=== PATIENT | male | born 1955 | race Caucasian/White ===

== ENCOUNTER 2023-04-30 17:18 | Inpatient (IN) ==
[2023-04-30] MEDS ORDERED: CEFEPIME 2,000 MG/20 ML VIAL IV STA (18:01)
[2023-04-30] MEDS ORDERED: DOXYCYCLINE HYCLATE 100 MG in DEXTROSE 5% 100 ML IV STA (18:01)
[2023-04-30] MEDS ORDERED: SODIUM CHLORIDE 0.9% 1000ML 1,000 ML IV SCH ×2 (18:15→23:53)
--- NOTE | 2023-04-30 18:30 | Emergency Department Note ---
Impression & Plan Hypotension, Fever, Thrombocytopenia, Elevated liver enzymes ED Provider Note NAME: ZENON TRAN AGE: 67 SEX: M : 1955 ARRIVES VIA: Walk-In INFORMANT: [Patient] ED PROVIDER(S): [Carter Wagner MD] CHIEF COMPLAINT: Fever HISTORY OF PRESENT ILLNESS: The patient is a 67-year-old male who has had about 3 days of a fever. Today's temperature was 104.7. He used some Tylenol before arrival and his fever has broke. He has been using Tylenol for the fever for the last 3 days. Patient has low energy and feels tired and weak and off balance. He has had some chills. He is concerned about a tickborne illness as there are ticks all around his house. He has not had cough or congestion or shortness of breath. No urinary complaints, no vomiting diarrhea, no rash. Yesterday, he saw his doctors office. He was prescribed doxycycline for the possibility of a tickborne disease. His COVID, flu and RSV test were negative. PMHx/PSHx: See Below SOCIAL HISTORY: See Below. PHYSICAL EXAM: GENERAL: Patient is in no acute distress. HEENT: No acute trauma, normocephalic atraumatic, mucous membranes moist, no nasal congestion. NECK: No stridor, no adenopathy, no meningismus, trachea is midline. LUNGS: Clear to auscultation bilaterally, no wheeze, no rhonchi, breath sounds equal. HEART: Without murmurs gallops or rubs, regular rate and rhythm. ABDOMEN: Soft, nontender, bowel sounds positive, no peritonitis. EXTREMITIES: No cyanosis or edema, full range of motion of all the joints without pain or difficulty, no signs for acute trauma. NEUROLOGIC: Oriented x 3, no acute motor or sensory deficits, no focal weakness. SKIN: No rash, no jaundice, no diaphoresis. DIFFERENTIAL DIAGNOSIS: Anaplasmosis, Lyme disease, bacteremia or sepsis, pneumonia, viral illness, UTI, dehydration, electrolyte imbalance, among others. EMERGENCY DEPARTMENT COURSE/PROCEDURES: Prior/Outside records reviewed: Recent family practice note. ECG per my interpretation: Indication was possible sepsis. The ECG shows a normal sinus rhythm with a right bundle branch block. The rate is 68. There is no ST elevation, no PVCs. The QTc is 463. Compared to an ECG from 15 November 2021, the right bundle branch block is now present. Continuous Cardiac Monitoring per my interpretation: An order was placed for continuous cardiac monitoring. The monitor shows a rate of 85 with normal sinus rhythm. Critical Care Note: I have personally spent 45 minutes of critical care time in the direct management of this patient. This includes bedside care, interpretation of diagnostic studies, and testing, discussion with consultants, patient, and family members, and other required patient management activities. This 45 minutes is in excess of all separately billable procedures. MEDICAL DECISION MAKING: There is no leukocytosis. Patient was anemic with a hemoglobin of 10.7. The patient carries a history of a mild anemia but his value today was lower than his baseline. Platelet count was quite low at 44. No renal failure or significant electrolyte abnormality. Lactic acid level was not elevated making severe sepsis less likely. No concerning liver enzyme elevation. Procalcitonin level was slightly elevated consistent with potential bacterial infection. Urinalysis did not show infection. Tickborne smear was negative for anaplasmo sis and babesiosis. Send out anaplasmosis and Babesia testing is pending. COVID test returned negative. Chest film per my review did not show mediastinal widening, pneumonia or pneumothorax. On exam, the patient was borderline hypotensive, he was not toxic. Patient received 2 L of IV saline. He received IV doxycycline and IV cefepime. Patient's presentation and findings suggest anaplasmosis as the cause for his fever and complaints. Patient is failing outpatient treatment. He presents borderline hypotensive. I do think a hospital stay is warranted. I spoke with the patient and case management, the on-call hospitalist was consulted. Of note, the patient's blood pressure has improved with IV saline hydration. He is resting comfortably. DISPOSITION: Patient's presentation and findings warrant a hospital stay. Past Med/Surg History Medical History Adenomatous polyp of colon Adenomyomatosis of gallbladder Cholelithiasis Dyslipidemia NO MEDS Gallstones and inflammation of gallbladder without obstruction Hypothyroidism Nocturia Sciatica Syncope per [facility] 07/10/2020 note: "likely related to dehydration, hot weather, activity and a febrile illness." Surgical History H/O oral surgery History of colonoscopy Hx laparoscopic cholecystectomy (11/21/21) Family History Father Prostate cancer Brother Hypertension Dyslipidemia Mother Dyslipidemia Denies family history of Ovarian cancer Bipolar disorder Myocardial infarction Breast cancer Lung cancer Colorectal cancer Stroke Social History Smoking Status: Never smoker Second Hand Exposure: No; Do You Dip or Chew Tobacco: No; Hx Alcohol Use: No Hx Substance Use: No Preferred Language: Tamazight Communication Ability: Effective Visual Impairment: Limited Hearing Ability: Normal Senior Technical Analyst Required: No Beliefs That Will Affect Care: None marital status: Current Living Situation: Spouse current occupational status: employed current occupation: [employer] Professor How many Children do You have: 2 Other Information That Helps Us Care for You: No Feels Safe at Home: Yes Childhood Exposure to Second-Hand Smoke: No caffeine: Yes Dental Care, Regularly: Yes Physical Activity Frequency: 3-4 Times per Week Seatbelt Use: always Sunscreen Use: Yes Assistive Devices: None Allergies Allergies Allergy/AdvReac Type Severity Reaction Status Date / Time No Known Allergies Allergy Verified 04/29/23 16:29 Home Meds Home Medications Medication Instructions Recorded Confirmed acetaminophen 500 mg tablet 1,000 mg PO Q6H PRN Fever 04/30/23 04/30/23 (Tylenol Extra Strength) Previous Rx's Medication Instructions Recorded levothyroxine 88 mcg tablet 88 mcg PO QAM #90 tabs 09/15/22 doxycycline hyclate 100 mg tablet 100 mg PO BID 7 days #14 tabs 04/30/23 Results & Data (ED) Vital Signs Vital Signs - 24 hr 04/30/23 17:23 04/30/23 18:41 04/30/23 19:01 Temperature 37.4 C 37.5 C Temperature Source Oral Oral Pulse Rate 85 63 Pulse Rate [Right Brachial] 60 Pulse Rhythm Pulse Rhythm [Right Brachial] Regular Pulse Strength [Right Brachial] Normal Respiratory Rate 18 18 Respiratory Effort / Characteristics Non-Labored Non-Labored Spontaneous Respiratory Depth Normal Normal Respiratory Pattern Regular Regular Blood Pressure 92/57 L Blood Pressure [Right Arm] 117/61 Blood Pressure Mean 68 Blood Pressure Mean [Right Arm] 79 Blood Pressure Position [Right Arm] Pulse Oximetry 95 95 Oxygen Delivery Method Room Air Room Air Sepsis Recent Fever Within 48 Hours Yes Sepsis New/Unexplained Change in Mental Status N/A Sepsis Action Taken by Nursing No Action Required 04/30/23 19:03 04/30/23 19:04 04/30/23 19:43 Temperature 37.5 C 37.3 C Temperature Source Oral Oral Pulse Rate 60 Pulse Rate [Right Brachial] 68 59 L Pulse Rhythm Regular Pulse Rhythm [Right Brachial] Regular Regular Pulse Strength [Right Brachial] Normal Normal Respiratory Rate 18 18 18 Respiratory Effort / Characteristics Non-Labored Spontaneous Non-Labored Spontaneous Respiratory Depth Normal Normal Respiratory Pattern Regular Regular Blood Pressure Blood Pressure [Right Arm] 117/61 119/67 Blood Pressure Mean Blood Pressure Mean [Right Arm] 79 84 Blood Pressure Position [Right Arm] Lying Lying Pulse Oximetry 96 96 96 Oxygen Delivery Method Room Air Room Air Room Air Sepsis Recent Fever Within 48 Hours Sepsis New/Unexplained Change in Mental Status Sepsis Action Taken by [facility] Medications Current Medication List: was personally reviewed by me Laboratory Data Attestation: I reviewed the patient's lab results. 04/30/23 18:33 04/30/23 18:33 Lab Results 04/30/23 04/30/23 04/30/23 Range/Units 18:33 18:33 18:33 WBC 6.34 (4.8-10.8) K/ul RBC 3.45 L (4.70-6.10) M/uL Hgb 10.7 L (14.0-18.0) g/dl Hct 31.5 L (42.0-52.0) % MCV 91.3 (80.0-100.0) fL MCH 31.0 (25.0-34.0) pg MCHC 34.0 (32.0-36.0) g/dL RDW Std Deviation 47.0 H (36.4-46.3) fL RDW Coeff of [place] 14.0 (11.5-14.5) % Plt Count 44 L (130-400) K/uL MPV 11.9 (9.4-12.4) fL Immature Gran % (Auto) 0.8 % Neut % (Auto) 45.1 % Lymph % (Auto) 27.8 % [place] % (Auto) 25.9 % Eos % (Auto) 0.2 % Baso % (Auto) 0.2 % Neut # (Auto) 2.87 (1.40-6.50) K/uL Lymph # (Auto) 1.76 (1.2-3.4) K/uL [place] # (Auto) 1.64 H (0.11-0.59) K/uL Eos # (Auto) 0.01 (0-0.50) K/uL Baso # (Auto) 0.01 (0-0.2) K/uL Immature Gran # (Auto) 0.05 (0.01-0.20) K/uL Sodium 134 L (136-145) mmol/L Potassium 4.1 (3.5-5.1) mmol/L Chloride 100 (98-107) mmol/L Carbon Dioxide 26 (21-32) mmol/L Anion Gap 8 (3-11) BUN 18 (6-23) mg/dl Creatinine 1.00 (0.6-1.4) mg/dl Est Cr Clr Drug Dosing 79.9 ml/min Est GFR ( Amer) 89.2 ml/min Est GFR (Non-Af Amer) 77.0 ml/min BUN/Creatinine Ratio 18.0 (10-20) Glucose 109 H (70-99(Fasting)) mg/dl Lactate 0.8 (0.4-2.0) mmol/L Calcium 8.4 L (8.6-10.3) mg/dl Magnesium 1.9 (1.7-2.4) mg/dl Total Bilirubin 0.7 (0.2-1.0) mg/dl Direct Bilirubin 0.2 (0-0.2) mg/dl AST 31 (13-39) U/L ALT 27 (7-52) U/L Alkaline Phosphatase 51 (34-104) U/L Troponin I High Sens 6.2 (0-20) pg/ml Total Protein 6.6 (6.0-8.3) gm/dl Albumin 3.7 (3.4-5.0) gm/dl Procalcitonin (0-0.5) ng/ml Urine Color Urine Appearance (Clear) Urine pH (4.5-7.5) Ur Specific [place] (1.000-1.030) Urine Protein (Negative) Urine Glucose (UA) (Negative) Urine Ketones (Negative) Urine Blood (Negative) Urine Nitrite (Negative) Urine Bilirubin (Negative) Urine Urobilinogen (Negative) Ur Leukocyte Esterase (Negative) Urine WBC (Auto) (0-5) /hpf Urine RBC (Auto) (0-4) /hpf U Hyaline Cast (Auto) (0-5) /lpf U Epithel Cells (Auto) (0-5) /lpf Urine Bacteria (Auto) (Negative) Anaplasma Smear See Comment Babesia Smear See Comment 04/30/23 04/30/23 04/30/23 Range/Units 18:33 18:33 19:00 WBC (4.8-10.8) K/ul RBC (4.70-6.10) M/uL Hgb (14.0-18.0) g/dl Hct (42.0-52.0) % MCV (80.0-100.0) fL MCH (25.0-34.0) pg MCHC (32.0-36.0) g/dL RDW Std Deviation (36.4-46.3) fL RDW Coeff of [place] (11.5-14.5) % Plt Count (130-400) K/uL MPV (9.4-12.4) fL Immature Gran % (Auto) % Neut % (Auto) % Lymph % (Auto) % [place] % (Auto) % Eos % (Auto) % Baso % (Auto) % Neut # (Auto) (1.40-6.50) K/uL Lymph # (Auto) (1.2-3.4) K/uL [place] # (Auto) (0.11-0.59) K/uL Eos # (Auto) (0-0.50) K/uL Baso # (Auto) (0-0.2) K/uL Immature Gran # (Auto) (0.01-0.20) K/uL Sodium (136-145) mmol/L Potassium (3.5-5.1) mmol/L Chloride (98-107) mmol/L Carbon Dioxide (21-32) mmol/L Anion Gap (3-11) BUN (6-23) mg/dl Creatinine (0.6-1.4) mg/dl Est Cr Clr Drug Dosing ml/min Est GFR ( Amer) ml/min Est GFR (Non-Af Amer) ml/min BUN/Creatinine Ratio (10-20) Glucose (70-99(Fasting)) mg/dl Lactate (0.4-2.0) mmol/L Calcium (8.6-10.3) mg/dl Magnesium (1.7-2.4) mg/dl Total Bilirubin (0.2-1.0) mg/dl Direct Bilirubin (0-0.2) mg/dl AST (13-39) U/L ALT (7-52) U/L Alkaline Phosphatase (34-104) U/L Troponin I High Sens (0-20) pg/ml Total Protein (6.0-8.3) gm/dl Albumin (3.4-5.0) gm/dl Procalcitonin 0.54 H (0-0.5) ng/ml Urine Color Dark Yellow Urine Appearance Clear (Clear) Urine pH 8.0 H (4.5-7.5) Ur Specific [place] 1.020 (1.000-1.030) Urine Protein 2+ H (Negative) Urine Glucose (UA) Negative (Negative) Urine Ketones Negative (Negative) Urine Blood Negative (Negative) Urine Nitrite Negative (Negative) Urine Bilirubin Negative (Negative) Urine Urobilinogen Negative (Negative) Ur Leukocyte Esterase Negative (Negative) Urine WBC (Auto) 1-5 (0-5) /hpf Urine RBC (Auto) 0-4 (0-4) /hpf U Hyaline Cast (Auto) 0 (0-5) /lpf U Epithel Cells (Auto) 5-10 H (0-5) /lpf Urine Bacteria (Auto) Negative (Negative) Anaplasma Smear Cancelled Babesia Smear Cancelled Administered Medications Sodium Chloride (Nss 1000ml) 1,000 mls @ 100 mls/hr IV .Q10H [facility] Stop: 05/01/23 09:52 Last Admin: 05/01/23 00:14 Dose: 100 mls/hr Documented By: BJD Discontinued Medications Cefepime HCl (Maxipime) 2,000 mg in 20 mls @ 5 mls/min IV NOW STA; Protocol Stop: 04/30/23 18:04 Last Admin: 04/30/23 18:32 Dose: 5 mls/min Documented By: XENIA Doxycycline Hyclate 100 mg/ (Dextrose) 110 mls @ 50 mls/hr IV NOW STA Stop: 04/30/23 20:12 Last Infusion: 04/30/23 21:27 Dose: 0 mls/hr Documented By: Admin: 04/30/23 18:57 Dose: 50 mls/hr Documented By: GONZALEZ Sodium Chloride (Nss 1000ml) 1,000 mls @ 999 mls/hr IV .Q1H1M KATHY Stop: 04/30/23 19:15 Last Infusion: 04/30/23 19:42 Dose: 0 mls/hr Documented By: Admin: 04/30/23 18:32 Dose: 999 mls/hr Documented By: XENIA Sodium Chloride (Nss 1000ml) 1,000 mls @ 999 mls/hr IV .Q1H1M ONE Stop: 04/30/23 21:06 Last Infusion: 04/30/23 21:27 Dose: 0 mls/hr Documented By: Admin: 04/30/23 20:11 Dose: 999 mls/hr Documented By: GONZALEZ Imaging Data Radiologist's Impression: Chest X-Ray 04/30/23 18:01 XR chest 1V portable HISTORY: Sepsis COMPARISON: None. FINDINGS: The lungs are clear. Cardiac silhouette is normal in size. No pleural effusions. No pneumothorax. IMPRESSION: No acute process. ACT 112: Negative or not required by law. Electronically signed by: Dylan Marlow M.D. 04/30/2023 6:33 PM Discharge Plan Visit Data Chief Complaint: Fever Stated Complaint: FEVER ED Provider: Carter Wagner Discharge Problem: Hypotension, Fever, Thrombocytopenia, Elevated liver enzymes Patient Disposition: Admitted As Inpatient Condition: Fair Discharge Instructions Interventions: ED Discharge Assessment Last Done: 04/30/23 23:28
--- NOTE | 2023-04-30 18:34 | XRay Report ---
XR chest 1V portable HISTORY: Sepsis COMPARISON: None. FINDINGS: The lungs are clear. Cardiac silhouette is normal in size. No pleural effusions. No pneumot horax. IMPRESSION: No acute process. ACT 112: Negative or not required by law. Electronically signed by: Dylan Marlow M.D. 04/30/2023 6:33 PM
[2023-04-30 19:15] LABS: Basophils # (auto) 0.01 K/uL (0-0.2); Basophils % (auto) 0.2 %; Eosinophils # (auto) 0.01 K/uL (0-0.50); Eosinophils % (auto) 0.2 %; Hematocrit (blood only) 31.5 % (42.0-52.0); Hemoglobin 10.7 g/dl (14.0-18.0); Immature Granulocytes # (auto) 0.05 K/uL (0.01-0.20); Immature Granulocytes % (auto) 0.8 %; Lymphocytes # (auto) 1.76 K/uL (1.2-3.4); Lymphocytes % (auto) 27.8 %; Mean Corpuscular Volume 91.3 fL (80.0-100.0); Mean Platelet Volume 11.9 fL (9.4-12.4); Monocytes # (auto) 1.64 K/uL (0.11-0.59); Monocytes % (auto) 25.9 %; Neutrophils # (auto) 2.87 K/uL (1.40-6.50); Neutrophils % (auto) 45.1 %; Platelet Count 44 K/uL (130-400); Red Blood Count 3.45 M/uL (4.70-6.10); White Blood Count 6.34 K/ul (4.8-10.8)
[2023-04-30 19:20] LABS: Albumin Level 3.7 gm/dl (3.4-5.0); Bilirubin Direct 0.2 mg/dl (0-0.2); Bilirubin,Total 0.7 mg/dl (0.2-1.0); Calcium 8.4 mg/dl (8.6-10.3); Creatinine Clr Calc Pharmacy 79.9 ml/min; Est GFR (African American) 89.2 ml/min; Magnesium 1.9 mg/dl (1.7-2.4); Potassium 4.1 mmol/L (3.5-5.1); Total Protein 6.6 gm/dl (6.0-8.3)
[2023-04-30 19:25] LABS: Troponin I High Sensitivity 6.2 pg/ml (0-20)
[2023-04-30 19:30] LABS: Appearance Urine Clear (Clear); Bacteria Urine Automated Negative (Negative); Bilirubin Urine Negative (Negative); Blood Urine Negative (Negative); Cast Urine Automated 0 /lpf (0-5); Color Urine Dark Yellow; Glucose Urine UA Negative (Negative); Ketones Urine Negative (Negative); Leukocyte Esterase Urine Negative (Negative); Nitrite Urine Negative (Negative); RBC Urine Automated 0-4 /hpf (0-4); Urobilinogen Urine Negative (Negative)
[2023-04-30 19:38] LABS: Protein Urine 2+ (Negative)
[2023-04-30] MEDS ORDERED: SODIUM CHLORIDE 0.9% 1000ML 1,000 ML IV ONE (20:06)
--- NOTE | 2023-04-30 21:18 | History & Physical Report ---
Date of Service April 30, 2023 Assessment & Plan (1) Tick bite: (2) Fatigue: (3) Fever: (4) Hypothyroidism: Plan Pee Diaz is a 67 year-old male with a past medical history of hypothyroidism, s/p lap justine who presented to the ED due to several days of high fever and chills. Febrile, Thrombocytopenia -Patient has had fever since 04/27 with Tmax of >104F today, took Tylenol at 2pm most recently -Afebrile since arrival in ED. Initial soft BP of 92/57, normotensive and s/p 2L NSS -High suspicion of tick borne disease -Anaplasma, babesia smears negative. PCR for same, pending -Lyme IgG ab positive, WB pending. Lyme IgM ab negative, WB pending. -Given recent airline travel to [place], will order EBV, CMV, parvovirus -Platelets 44. Hgb 10.7, WBC 6.34. Procal 0.54 -Blood cultures collected -Received Cefepime 2g in ED, continue Doxycycline 100mg BID -Repeat CBC w platelets and diff in a.m. Hypothyroidism -Continue home levothyroxine Diet: Regular VTE Prophylaxis: Encourage early ambulation Code Status: Full Code Dispo: Med-tele History of Present Illness Primary Care Provider: Hortencia Villa MD Pee Diaz is a 67 year-old male with a past medical history of hypothyroidism, s/p lap justine who presented to the ED due to several days of high fever and chills. He started feeling a bit worn down last weekend and first noted a fever on April 27 (temp around 102 F) which improved with Tylenol. He states that the fever has returned every day since and today reached 104F which did not respond to Tylenol. He endorses chills and profuse sweating after the fever breaks. He went to his PCP yesterday who ordered blood work and started him on doxycycline (first dose this morning). Denies nause a/vomiting/diarrhea/dysuria/shortness of breath/chest pain. He notes that he typically will find at least 1 tick on him per week, but denies any visible rashes. [place]. Received all childhood vaccines. Recently traveled to [place] in March, no other recent travel. Allergies Allergy/AdvReac Type Severity Reaction Status Date / Time No Known Allergies Allergy Verified 04/29/23 16:29 Home Medications Medication Instructions Recorded Confirmed Type levothyroxine 88 mcg tablet 88 mcg PO QAM #90 tabs 09/15/22 04/30/23 Rx acetaminophen 500 mg tablet 1,000 mg PO Q6H PRN Fever 04/30/23 04/30/23 History (Tylenol Extra Strength) doxycycline hyclate 100 mg tablet 100 mg PO BID 7 days #14 tabs 04/30/23 04/30/23 Rx Past Med/Surg History Medical History Adenomatous polyp of colon Adenomyomatosis of gallbladder Cholelithiasis Dyslipidemia NO MEDS Gallstones and inflammation of gallbladder without obstruction Hypothyroidism Nocturia Sciatica Syncope per [facility] 07/10/2020 note: "likely related to dehydration, hot weather, activity and a febrile illness." Surgical History H/O oral surgery History of colonoscopy Hx laparoscopic cholecystectomy (11/21/21) Family History Father Prostate cancer Brother Hypertension Dyslipidemia Mother Dyslipidemia Denies family history of Ovarian cancer Bipolar disorder Myocardial infarction Breast cancer Lung cancer Colorectal cancer Stroke Social History Smoking Status: Never smoker Second Hand Exposure: No; Do You Dip or Chew Tobacco: No; Hx Alcohol Use: No Hx Substance Use: No Preferred Language: Bol[place]ian Communication Ability: Effective Visual Impairment: Limited Hearing Ability: Normal Drum Straightener Required: No Beliefs That Will Affect Care: None marital status: Current Living Situation: Spouse current occupational status: employed 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 Moist mucous membranes. Respiratory: normal respiratory effort, lungs clear to auscultation Cardiovascular: Rate/Rhythm: regular rate and regular rhythm Extremities: no edema Gastrointestinal (Abdomen): normal bowel sounds, soft, nontender, no hepatosplenomegaly Musculoskeletal: Extremities: extremities normal to inspection; normal strength Skin: no rashes, warm and dry Neurologic: normal touch/pain/proprioception and CN's II-XI intact bilaterally Psychiatric: A+Ox3, euthymic affect Results & Data Results & Data Vital Signs (Past 12 Hours) Vital Signs Temp Pulse Pulse Resp BP BP Pulse Ox 04/30/23 19:43 37.3 C 59 L 18 119/67 96 04/30/23 19:04 37.5 C 68 18 117/61 96 04/30/23 19:03 60 18 96 04/30/23 19:01 37.5 C 60 18 117/61 95 04/30/23 18:41 63 04/30/23 17:23 37.4 C 85 18 92/57 L 95 O2 Del Method 04/30/23 19:43 Room Air 04/30/23 19:04 Room Air 04/30/23 19:03 Room Air 04/30/23 19:01 Room Air 04/30/23 18:41 04/30/23 17:23 Room Air Supervising Physician Co-Signing Physician Notes Attending addendum: I have physically seen this patient, have supervised the medical residents activities, and agree with the H&P unless as otherwise noted. Assessment and Plan: Febrile illness/thrombocytopenia/fatigue/tick bite/recent travel to [place]- peripheral smear for anaplasmosis and babesiosis negative PCR test pending for anaplasmosis and babesiosis Lyme IgG antibody, positive Lyme IgM antibody negative, with Western blot pending order EBV, CMV, parvovirus antibodies Follow serial laboratories Received cefepime 2 g IV from the ED Continue doxycycline 100 mg IV twice daily thrombocytopenia- Verify when smear was looked at that platelet morphology was assessed as well Hypothyroidism- Continue levothyroxine Remaining orders and notations as noted Resident Activity Tracking Resident Involvement: Resident Care Provided Care Provided: Adult [facility] Medicine
[2023-05-01] MEDS: ACETAMINOPHEN 325 MG TAB PO PRN ×3 (03:09→23:26)
[2023-05-01] MEDS: LEVOTHYROXINE SODIUM 88 MCG TABLET PO SCH (05:46)
[2023-05-01 07:45] LABS: Basophils # (auto) 0.02 K/uL (0-0.2); Basophils % (auto) 0.4 %; Eosinophils # (auto) 0.02 K/uL (0-0.50); Eosinophils % (auto) 0.4 %; Hematocrit (blood only) 29.6 % (42.0-52.0); Hemoglobin 10.2 g/dl (14.0-18.0); Immature Granulocytes # (auto) 0.03 K/uL (0.01-0.20); Immature Granulocytes % (auto) 0.6 %; Lymphocytes # (auto) 1.72 K/uL (1.2-3.4); Lymphocytes % (auto) 33.1 %; Mean Corpuscular Hemoglobin 31.1 pg (25.0-34.0); Mean Corpuscular Hgb Conc 34.5 g/dL (32.0-36.0); Mean Corpuscular Volume 90.2 fL (80.0-100.0); Mean Platelet Volume 12.1 fL (9.4-12.4); Monocytes # (auto) 1.23 K/uL (0.11-0.59); Monocytes % (auto) 23.7 %; Neutrophils # (auto) 2.17 K/uL (1.40-6.50); Neutrophils % (auto) 41.8 %; Platelet Count 39 K/uL (130-400); RDW Coefficient of Variation 13.9 % (11.5-14.5); RDW Standard Deviation 46.2 fL (36.4-46.3); Red Blood Count 3.28 M/uL (4.70-6.10); White Blood Count 5.19 K/ul (4.8-10.8)
[2023-05-01] MEDS: DOXYCYCLINE HYCLATE 100 MG CAP PO SCH ×2 (07:55→20:51)
[2023-05-01 08:21] LABS: BUN Creatinine Ratio 17.3 (10-20); Calcium 7.4 mg/dl (8.6-10.3); Creatinine Clr Calc Pharmacy 95.8 ml/min; Est GFR (African American) 105.8 ml/min; Est GFR (Non-African American) 91.3 ml/min; Potassium 3.8 mmol/L (3.5-5.1)
[2023-05-01 10:41] LABS: Reticulocyte % 1.8 % (0.5-2.0); Reticulocytes # 0.07 10^6/uL (0.02-0.10)
[2023-05-01 17:23] LABS: Basophils # (auto) 0.02 K/uL (0-0.2); Basophils % (auto) 0.3 %; Hematocrit (blood only) 29.6 % (42.0-52.0); Immature Granulocytes # (auto) 0.03 K/uL (0.01-0.20); Immature Granulocytes % (auto) 0.5 %; Lymphocytes # (auto) 1.88 K/uL (1.2-3.4); Mean Corpuscular Hemoglobin 30.6 pg (25.0-34.0); Mean Corpuscular Hgb Conc 33.8 g/dL (32.0-36.0); Mean Corpuscular Volume 90.5 fL (80.0-100.0); Mean Platelet Volume 11.9 fL (9.4-12.4); Monocytes # (auto) 1.76 K/uL (0.11-0.59); Neutrophils # (auto) 2.37 K/uL (1.40-6.50); Neutrophils % (auto) 39.2 %; Platelet Count 42 K/uL (130-400); RDW Standard Deviation 46.9 fL (36.4-46.3); Red Blood Count 3.27 M/uL (4.70-6.10); White Blood Count 6.06 K/ul (4.8-10.8)
--- NOTE | 2023-05-01 21:26 | Hospitalist Progress Note ---
Date of Service May 01, 2023 Assessment & Plan (1) Febrile illness, acute: Plan: Multi-day febrile illness. Differential viral vs tick-borne vs bacterial. EBV, parvovirus, and CMV titers pending. Blood cx's pending but thus far negative. CXR neg for pneumonia. u/a not suggestive of UTI. Lyme screen - IgM neg, IgG positive - on doxy; western blot pending. Anaplasmosis and babesiosis smears negative; DNA tests sent/pending - on doxy. LDH mildly high, but t.bili is normal and retic count is not high suggesting there is no hemolysis. That would argue against babesiosis. Fever has resolved on doxy. Given his frequent tick exposure, [place], frequent trips to [place], very low platelets, etc - tick-borne illness highest on differential especially anaplasmosis. Still can't rule out viral etiology but, if illness is indeed viral, only supportive care is needed. Await Lyme western blot, anaplasmosis DNA, and babesiosis DNA. Cont empiric doxy. Trend platelets. Await viral titers as above. Follow-up on blood cultures tomorrow. Will give 1 additional liter of isotonic fluid overnight due to recent insensible losses from high fevers. (2) Positive Lyme disease serology: Plan: Uncertain if this is reflective of past Lyme illness or if he has early disseminated Lyme. Favor former. He does not have symptoms or signs of early disseminated Lyme - no carditis, no arthritis, no ARCHITECTURAL INTERN symptoms, etc. Await western blot. He will be on doxy 100mg BID regardless of outcome of Western Blot. (3) Thrombocytopenia: Plan: Highly suggestive of either tick-borne illness (anaplasmosis in particular) vs viral vs other. repeat CBC this afternoon suggests that the platelets are leveling off - good sign of course. If the platelets are due to anaplasmosis or other tick illness the platelets should continue to improve over the next 5-7 days. If viral the platelets could be low for several more days. CMV/EBV/parvo titers are pending. No indication for platelet transfusion at this time. No bleeding complications. (4) Anemia: Plan: Likely due to frequent blood draws since admission, some element of dilution (copious IV fluids since admission), and potentially some bone marrow supression. H/H have leveled off this afternoon. Again - although LDH is mildly high, retic count is not elevated and total bili is normal arguing against hemolysis. This would not support dx of babesiosis. Repeat cbc am. (5) Hypothyroidism: Plan: TSH 2.8 in 08/2022 cont synthroid (6) DVT prophylaxis: Plan: due to severe thrombocytopenia chemical means are contraindicated further, he is ambulating the halls frequently Plan length of stay will be dictated by his clinical course, platelet count, etc Admission and Anticipated Discharge Date Admission Date: April 30, 2023 Subjective patient feeling much better today no fever today no chills today walking the hallways a little weak, but feels way better than earlier this week no headache no N/V no cough or dyspnea tele overnight wnl did travel to [place] but that was in early March lives on a farm in [facility] and they have farm animals and go on trails w/ their horses Review of Systems Review of Systems: cv - no cp pulm - no dyspnea on exertion GI - no pain skin - no rash Physical Exam Physical Exam: gen - looks good, NAD, pleasant skin - no rash mouth - MM slightly pasty neck - no lymphadenopathy heart - RRR, s1 s2, no murmur lungs - CTA b/l abd - soft NT ND BS+ ext - no edema, pulses 2+ b/l musculo - no synovitis any joint Results & Data Results & Data Vital Signs (Past 12 Hours) Vital Signs Temp Pulse Pulse Resp BP BP Pulse Ox 05/01/23 19:41 37.2 C 60 18 91/56 L 95 05/01/23 16:45 89 05/01/23 15:35 39.4 C H 84 18 108/62 94 05/01/23 11:14 37.2 C 75 16 146/80 H 97 O2 Del Method 05/01/23 19:41 Room Air 05/01/23 16:45 05/01/23 15:35 Room Air 05/01/23 11:14 Room Air Laboratory Results Laboratory Results - last 48 hr 04/30/23 04/30/23 04/30/23 18:33 18:33 18:33 WBC 6.34 RBC 3.45 L Hgb 10.7 L Hct 31.5 L MCV 91.3 MCH 31.0 MCHC 34.0 RDW Std Deviation 47.0 H RDW Coeff of [place] 14.0 Plt Count 44 L MPV 11.9 Immature Gran % (Auto) 0.8 Neut % (Auto) 45.1 Lymph % (Auto) 27.8 [place] % (Auto) 25.9 Eos % (Auto) 0.2 Baso % (Auto) 0.2 Reticulocyte % (Auto) Neut # (Auto) 2.87 Lymph # (Auto) 1.76 [place] # (Auto) 1.64 H Eos # (Auto) 0.01 Baso # (Auto) 0.01 Reticulocyte # Immature Gran # (Auto) 0.05 Neutrophils % (Manual) Lymphocytes % (Manual) Reactive Lymphs % (Man) Monocytes % (Manual) Myelocytes % (Man) Neutrophils # (Manual) Total Absolute Neuts Lymphocytes # (Manual) Reactive Lymphs # Total Abs Lymphocytes Monocytes # (Manual) Myelocytes # (Manual) Sodium 134 L Potassium 4.1 Chloride 100 Carbon Dioxide 26 Anion Gap 8 BUN 18 Creatinine 1.00 Est Cr Clr Drug Dosing 79.9 Est GFR ( Amer) 89.2 Est GFR (Non-Af Amer) 77.0 BUN/Creatinine Ratio 18.0 Glucose 109 H Lactate 0.8 Calcium 8.4 L Magnesium 1.9 Total Bilirubin 0.7 Direct Bilirubin 0.2 AST 31 ALT 27 Alkaline Phosphatase 51 Lactate Dehydrogenase Troponin I High Sens 6.2 Total Protein 6.6 Albumin 3.7 Procalcitonin Urine Color Urine Appearance Urine pH Ur Specific [place] Urine Protein Urine Glucose (UA) Urine Ketones Urine Blood Urine Nitrite Urine Bilirubin Urine Urobilinogen Ur Leukocyte Esterase Urine WBC (Auto) Urine RBC (Auto) U Hyaline Cast (Auto) U Epithel Cells (Auto) Urine Bacteria (Auto) Anaplasma Smear See Comment Babesia Smear See Comment SARS-CoV-2, RNA, NAAT 04/30/23 04/30/23 04/30/23 18:33 18:33 19:00 WBC RBC Hgb Hct MCV MCH MCHC RDW Std Deviation RDW Coeff of [place]son Plt Count MPV Immature Gran % (Auto) Neut % (Auto) Lymph % (Auto) [place] % (Auto) Eos % (Auto) Baso % (Auto) Reticulocyte % (Auto) Neut # (Auto) Lymph # (Auto) [place] # (Auto) Eos # (Auto) Baso # (Auto) Reticulocyte # Immature Gran # (Auto) Neutrophils % (Manual) Lymphocytes % (Manual) Reactive Lymphs % (Man) Monocytes % (Manual) Myelocytes % (Man) Neutrophils # (Manual) Total Absolute Neuts Lymphocytes # (Manual) Reactive Lymphs # Total Abs Lymphocytes Monocytes # (Manual) Myelocytes # (Manual) Sodium Potassium Chloride Carbon Dioxide Anion Gap BUN Creatinine Est Cr Clr Drug Dosing Est GFR ( Amer) Est GFR (Non-Af Amer) BUN/Creatinine Ratio Glucose Lactate Calcium Magnesium Total Bilirubin Direct Bilirubin AST ALT Alkaline Phosphatase Lactate Dehydrogenase Troponin I High Sens Total Protein Albumin Procalcitonin 0.54 H Urine Color Dark Yellow Urine Appearance Clear Urine pH 8.0 H Ur Specific [place] 1.020 Urine Protein 2+ H Urine Glucose (UA) Negative Urine Ketones Negative Urine Blood Negative Urine Nitrite Negative Urine Bilirubin Negative Urine Urobilinogen Negative Ur Leukocyte Esterase Negative Urine WBC (Auto) 1-5 Urine RBC (Auto) 0-4 U Hyaline Cast (Auto) 0 U Epithel Cells (Auto) 5-10 H Urine Bacteria (Auto) Negative Anaplasma Smear Cancelled Babesia Smear Cancelled SARS-CoV-2, RNA, NAAT 04/30/23 05/01/23 05/01/23 Unknown 06:48 06:48 WBC 5.19 RBC 3.28 L Hgb 10.2 L Hct 29.6 L MCV 90.2 MCH 31.1 MCHC 34.5 RDW Std Deviation 46.2 RDW Coeff of [place] 13.9 Plt Count 39 L MPV 12.1 Immature Gran % (Auto) 0.6 Neut % (Auto) 41.8 Lymph % (Auto) 33.1 [place] % (Auto) 23.7 Eos % (Auto) 0.4 Baso % (Auto) 0.4 Reticulocyte % (Auto) Neut # (Auto) 2.17 Lymph # (Auto) 1.72 [place] # (Auto) 1.23 H Eos # (Auto) 0.02 Baso # (Auto) 0.02 Reticulocyte # Immature Gran # (Auto) 0.03 Neutrophils % (Manual) Lymphocytes % (Manual) Reactive Lymphs % (Man) Monocytes % (Manual) Myelocytes % (Man) Neutrophils # (Manual) Total Absolute Neuts Lymphocytes # (Manual) Reactive Lymphs # Total Abs Lymphocytes Monocytes # (Manual) Myelocytes # (Manual) Sodium 138 Potassium 3.8 Chloride 107 Carbon Dioxide 26 Anion Gap 5 BUN 14 Creatinine 0.81 Est Cr Clr Drug Dosing 95.8 Est GFR ( Amer) 105.8 Est GFR (Non-Af Amer) 91.3 BUN/Creatinine Ratio 17.3 Glucose 103 H Lactate Calcium 7.4 L Magnesium Total Bilirubin Direct Bilirubin AST ALT Alkaline Phosphatase Lactate Dehydrogenase Troponin I High Sens Total Protein Albumin Procalcitonin Urine Color Urine Appearance Urine pH Ur Specific [place] Urine Protein Urine Glucose (UA) Urine Ketones Urine Blood Urine Nitrite Urine Bilirubin Urine Urobilinogen Ur Leukocyte Esterase Urine WBC (Auto) Urine RBC (Auto) U Hyaline Cast (Auto) U Epithel Cells (Auto) Urine Bacteria (Auto) Anaplasma Smear Babesia Smear SARS-CoV-2, RNA, NAAT NEGATIVE 05/01/23 05/01/23 05/01/23 10:00 10:00 10:00 WBC RBC Hgb Hct MCV MCH MCHC RDW Std Deviation RDW Coeff of [place]son Plt Count MPV Immature Gran % (Auto) Neut % (Auto) Lymph % (Auto) [place] % (Auto) Eos % (Auto) Baso % (Auto) Reticulocyte % (Auto) 1.8 Neut # (Auto) Lymph # (Auto) [place] # (Auto) Eos # (Auto) Baso # (Auto) Reticulocyte # 0.07 Immature Gran # (Auto) Neutrophils % (Manual) Lymphocytes % (Manual) Reactive Lymphs % (Man) Monocytes % (Manual) Myelocytes % (Man) Neutrophils # (Manual) Total Absolute Neuts Lymphocytes # (Manual) Reactive Lymphs # Total Abs Lymphocytes Monocytes # (Manual) Myelocytes # (Manual) Sodium Potassium Chloride Carbon Dioxide Anion Gap BUN Creatinine Est Cr Clr Drug Dosing Est GFR ( Amer) Est GFR (Non-Af Amer) BUN/Creatinine Ratio Glucose Lactate Calcium Magnesium Total Bilirubin 0.7 Direct Bilirubin AST ALT Alkaline Phosphatase Lactate Dehydrogenase 430 H Troponin I High Sens Total Protein Albumin Procalcitonin Urine Color Urine Appearance Urine pH Ur Specific [place] Urine Protein Urine Glucose (UA) Urine Ketones Urine Blood Urine Nitrite Urine Bilirubin Urine Urobilinogen Ur Leukocyte Esterase Urine WBC (Auto) Urine RBC (Auto) U Hyaline Cast (Auto) U Epithel Cells (Auto) Urine Bacteria (Auto) Anaplasma Smear Babesia Smear SARS-CoV-2, RNA, NAAT 05/01/23 16:46 WBC 6.06 RBC 3.27 L Hgb 10.0 L Hct 29.6 L MCV 90.5 MCH 30.6 MCHC 33.8 RDW Std Deviation 46.9 H RDW Coeff of [place] 14.0 Plt Count 42 L MPV 11.9 Immature Gran % (Auto) 0.5 Neut % (Auto) 39.2 Lymph % (Auto) 31.0 [place] % (Auto) 29.0 Eos % (Auto) 0.0 Baso % (Auto) 0.3 Reticulocyte % (Auto) Neut # (Auto) 2.37 Lymph # (Auto) 1.88 [place] # (Auto) 1.76 H Eos # (Auto) 0.00 Baso # (Auto) 0.02 Reticulocyte # Immature Gran # (Auto) 0.03 Neutrophils % (Manual) Lymphocytes % (Manual) Reactive Lymphs % (Man) Monocytes % (Manual) Myelocytes % (Man) Neutrophils # (Manual) Total Absolute Neuts Lymphocytes # (Manual) Reactive Lymphs # Total Abs Lymphocytes Monocytes # (Manual) Myelocytes # (Manual) Sodium Potassium Chloride Carbon Dioxide Anion Gap BUN Creatinine Est Cr Clr Drug Dosing Est GFR ( Amer) Est GFR (Non-Af Amer) BUN/Creatinine Ratio Glucose Lactate Calcium Magnesium Total Bilirubin Direct Bilirubin AST ALT Alkaline Phosphatase Lactate Dehydrogenase Troponin I High Sens Total Protein Albumin Procalcitonin Urine Color Urine Appearance Urine pH Ur Specific [place] Urine Protein Urine Glucose (UA) Urine Ketones Urine Blood Urine Nitrite Urine Bilirubin Urine Urobilinogen Ur Leukocyte Esterase Urine WBC (Auto) Urine RBC (Auto) U Hyaline Cast (Auto) U Epithel Cells (Auto) Urine Bacteria (Auto) Anaplasma Smear Babesia Smear SARS-CoV-2, RNA, NAAT PG Care Time/CCT Total # of Minutes Spent Total Time Spent with Patient: Total time spent is greater than 50% in coordination of care (as documented) at patient's floor/unit and/or counseling patient: Coding Level of Care Code 33806 SUB INP/OBS CARE 2/35MIN Diagnoses Febrile illness, acute R50.9 Positive Lyme disease serology R76.8 Thrombocytopenia D69.6 Anemia D64.9 Hypothyroidism E03.9 DVT prophylaxis Z29.9
[2023-05-01] MEDS ORDERED: SODIUM CHLORIDE 0.9% 1000ML 1,000 ML IV SCH (21:30)
--- NOTE | 2023-05-02 05:44 | Billing Data ---
Date of Service May 02, 2023 Coding Level of Care Code 67667 INT INP/OBS CARE
[2023-05-02] MEDS: LEVOTHYROXINE SODIUM 88 MCG TABLET PO SCH (05:54)
--- NOTE | 2023-05-02 06:35 | Electrocardiogram Report ---
Test Reason : Blood Pressure : / mmHG Vent. Rate : 068 BPM Atrial Rate : 068 BPM P-R Int : 136 ms QRS Dur : 130 ms QT Int : 436 ms P-R-T Axes : 000 072 015 degrees QTc Int : 463 ms Normal sinus rhythm Right bundle branch block Abnormal ECG When compared with ECG of 15-NOV-2021 08:43, Right bundle branch block is now Present Confirmed by Silvio Koehler ([id number]) on 05/02/2023 6:34:50 AM Referred By: REFERRED SELF Confirmed By:Silvio Koehler
[2023-05-02 07:23] LABS: Hematocrit (blood only) 29.8 % (42.0-52.0); Hemoglobin 10.2 g/dl (14.0-18.0); Mean Corpuscular Hemoglobin 30.8 pg (25.0-34.0); Mean Corpuscular Hgb Conc 34.2 g/dL (32.0-36.0); Mean Platelet Volume 11.7 fL (9.4-12.4); Platelet Count 44 K/uL (130-400); Red Blood Count 3.31 M/uL (4.70-6.10); White Blood Count 5.08 K/ul (4.8-10.8)
[2023-05-02 07:40] LABS: BUN Creatinine Ratio 14.5 (10-20); Calcium 7.7 mg/dl (8.6-10.3); Creatinine Clr Calc Pharmacy 93.5 ml/min; Est GFR (African American) 104.8 ml/min; Est GFR (Non-African American) 90.4 ml/min; Potassium 3.7 mmol/L (3.5-5.1)
[2023-05-02 07:57] LABS: ALC (manual) 2.39 K/uL (1.2-3.4); ANC (manual) 1.98 K/uL (1.4-6.5); Lymphocytes # (manual) 1.63 K/uL (1.2-3.4); Lymphocytes % (manual) 32 %; Monocytes # (manual) 0.66 K/uL (0.11-0.59); Monocytes % (manual) 13 %; Myelocytes # (manual) 0.05 K/uL (0-0); Myelocytes % (manual) 1 %; Neutrophils # (manual) 1.98 K/uL (1.40-6.50); Neutrophils % (manual) 39 %; Reactive Lymphocytes # (manual) 0.76 K/uL; Reactive Lymphocytes % (manual) 15 %
[2023-05-02] MEDS: DOXYCYCLINE HYCLATE 100 MG CAP PO SCH ×2 (08:54→20:28)
--- NOTE | 2023-05-02 21:47 | Hospitalist Progress Note ---
Date of Service May 02, 2023 Assessment & Plan (1) Febrile illness, acute: Plan: Multi-day febrile illness. Differential viral vs tick-borne vs bacterial. EBV, parvovirus, and CMV titers pending. Blood cx's pending but thus far negative. CXR neg for pneumonia. u/a not suggestive of UTI. Lyme screen - IgM neg, IgG positive - on doxy; western blot pending. Anaplasmosis and babesiosis smears negative; DNA tests sent/pending - on doxy. LDH mildly high, but t.bili is normal and retic count is not high suggesting there is no hemolysis. That would argue against babesiosis. Fever/curve has improved on doxy, he continues to get fevers overnight. Given his frequent tick exposure, [place], frequent trips to [place], very low platelets, etc - tick-borne illness highest on differential especially anaplasmosis. Still can't rule out viral etiology but, if illness is indeed viral, only supportive care is needed. Await Lyme western blot, anaplasmosis DNA, and babesiosis DNA. Cont empiric doxy. Trend platelets. Await viral titers as above. Follow-up on blood cultures tomorrow. (2) Positive Lyme disease serology: Plan: Uncertain if this is reflective of past Lyme illness or if he has early disseminated Lyme. Favor former. He does not have symptoms or signs of early disseminated Lyme - no carditis, no arthritis, no BUSINESS SUPPORT PROFESSIONAL symptoms, etc. Await western blot. He will be on doxy 100mg BID regardless of outcome of Western Blot. (3) Thrombocytopenia: Plan: Highly suggestive of either tick-borne illness (anaplasmosis in particular) vs viral vs other. repeat CBC this afternoon suggests that the platelets are leveling off - good sign of course. If the platelets are due to anaplasmosis or other tick illness the platelets should continue to improve over the next 5-7 days. If viral the platelets could be low for several more days. CMV/EBV/parvo titers are pending. No indication for platelet transfusion at this time. No bleeding complications. (4) Anemia: Plan: Likely due to frequent blood draws since admission, some element of dilution (copious IV fluids since admission), and potentially some bone marrow supression. H/H have leveled off this afternoon. Again - although LDH is mildly high, retic count is not elevated and total bili is normal arguing against hemolysis. This would not support dx of babesiosis. Repeat cbc am. (5) Hypothyroidism: Plan: TSH 2.8 in 08/2022 cont synthroid (6) DVT prophylaxis: Plan: due to severe thrombocytopenia chemical means are contraindicated further, he is ambulating the halls frequently Plan length of stay will be dictated by his clinical course, platelet count, etc Admission and Anticipated Discharge Date Admission Date: April 30, 2023 Subjective Patient reports doing well. The only issue was that he had fever overnight. But aside from this he reports no general malaise, nausea, vomiting.Patient reports feeling up to date with his cancer screening. Patient is a non smoker. Review of Systems Review of Systems: All systems reviewed & are unremarkable except as noted in HPI & below Physical Exam Physical Exam: gen - looks good, NAD, pleasant skin - no rash mouth - MM slightly pasty neck - no lymphadenopathy heart - RRR, s1 s2, no murmur lungs - CTA b/l abd - soft NT ND BS+ ext - no edema, pulses 2+ b/l musculo - no synovitis any joint Results & Data Results & Data Vital Signs (Past 12 Hours) Vital Signs Temp Pulse Pulse Resp BP BP Pulse Ox 05/02/23 20:27 116/67 05/02/23 19:34 37.1 C 73 20 96/57 L 96 05/02/23 15:57 36.8 C 67 17 118/69 97 05/02/23 15:32 72 O2 Del Method 05/02/23 20:27 05/02/23 19:34 Room Air 05/02/23 15:57 Room Air 05/02/23 15:32 PG Care Time/CCT Total # of Minutes Spent Total Time Spent with Patient: Total time spent is greater than 50% in coordination of care (as documented) at patient's floor/unit and/or counseling patient: Coding Level of Care Code 46268 SUB INP/OBS CARE 2/35MIN Diagnoses Febrile illness, acute R50.9 Positive Lyme disease serology R76.8 Thrombocytopenia D69.6 Anemia D64.9 Hypothyroidism E03.9 DVT prophylaxis Z29.9
[2023-05-03] MEDS: ACETAMINOPHEN 325 MG TAB PO PRN (03:30)
[2023-05-03] MEDS: LEVOTHYROXINE SODIUM 88 MCG TABLET PO SCH (05:45)
[2023-05-03 06:51] LABS: Hematocrit (blood only) 30.9 % (42.0-52.0); Hemoglobin 10.6 g/dl (14.0-18.0); Mean Corpuscular Hemoglobin 30.5 pg (25.0-34.0); Mean Corpuscular Hgb Conc 34.3 g/dL (32.0-36.0); Mean Platelet Volume 10.9 fL (9.4-12.4); Platelet Count 57 K/uL (130-400); RDW Coefficient of Variation 14.2 % (11.5-14.5); RDW Standard Deviation 46.2 fL (36.4-46.3); Red Blood Count 3.47 M/uL (4.70-6.10); White Blood Count 5.43 K/ul (4.8-10.8)
[2023-05-03 07:21] LABS: Albumin Level 3.3 gm/dl (3.4-5.0); Bilirubin Direct 0.1 mg/dl (0-0.2); Bilirubin,Total 0.6 mg/dl (0.2-1.0); Creatinine Clr Calc Pharmacy 95.8 ml/min; Est GFR (African American) 105.8 ml/min; Est GFR (Non-African American) 91.3 ml/min; Potassium 3.8 mmol/L (3.5-5.1); Total Protein 6.1 gm/dl (6.0-8.3)
[2023-05-03] MEDS: DOXYCYCLINE HYCLATE 100 MG CAP PO SCH (08:19)
[2023-05-03 09:07] LABS: Basophils # (auto) 0.02 K/uL (0-0.2); Basophils % (auto) 0.4 %; Eosinophils # (auto) 0.08 K/uL (0-0.50); Eosinophils % (auto) 1.5 %; Immature Granulocytes # (auto) 0.03 K/uL (0.01-0.20); Immature Granulocytes % (auto) 0.5 %; Lymphocytes # (auto) 1.67 K/uL (1.2-3.4); Lymphocytes % (auto) 30.5 %; Monocytes # (auto) 1.38 K/uL (0.11-0.59); Monocytes % (auto) 25.2 %; Neutrophils % (auto) 41.9 %
--- NOTE | 2023-05-03 11:50 | Discharge Summary ---
Date of Service May 03, 2023 Admission HPI Per Admitting Provider Pee Diaz is a 67 year-old male with a past medical history of hypothyroidism, s/p lap justine who presented to the ED due to several days of high fever and chills. He started feeling a bit worn down last weekend and first noted a fever on Thursday, April 27 (temp around 102 F) which improved with Tylenol. He states that the fever has returned every day since and today reached 104F which did not respond to Tylenol. He endorses chills and profuse sweating after the fever breaks. He went to his PCP yesterday who ordered blood work and started him on doxycycline (first dose this morning). Denies nausea/vomiting/diarrhea/ dysuria/shortness of breath/chest pain. He notes that he typically will find at least 1 tick on him per week, but denies any visible rashes. [place], [place]. Rec eived all childhood vaccines. Recently traveled to [place] in March, no other recent travel. Principal Diagnosis febrile illness, acute Discharge Exam gen - looks good, NAD, pleasant skin - no rash heart - RRR, s1 s2, no murmur lungs - CTA b/l abd - soft NT ND BS+ ext - no edema, pulses 2+ b/l Discharge Data Allergies Allergy/AdvReac Type Severity Reaction Status Date / Time No Known Allergies Allergy Verified 04/29/23 16:29 Consultations 04/30/23 20:05 ED Decision to Admit Stat Hospital Course (1) Febrile illness, acute: Multi-day febrile illness. Differential viral vs tick-borne vs bacterial. EBV, parvovirus, and CMV titers pending at discharge Blood cx's pending but thus far negative. CXR neg for pneumonia. u/a not suggestive of UTI. Lyme screen - IgM neg, IgG positive - on doxy; western blot: IgM negative, IgG positive. Anaplasmosis and babesiosis smears negative; DNA tests sent/pending - on doxy. LDH mildly high, but t.bili is normal and retic count is not high suggesting there is no hemolysis. That would argue against babesiosis. AST/ALT though increasing. Fever curve though has been improving, as they were originally continous and are now occuring once a day. And each period of patient being afebrile has increased. Tick-borne illness is high on the differential. Patient also was in [place], Dengue could cause fevers and thrombocytopenia. Treatment of this is supportive care. Ordered testing for this. Plan will be to discharge and complete doxycycline for an additional 13 doses. Platelets are trending upward. Will have PCP order CBC and CMP to monitor platelets and liver enzymes. CK is normal so no rhabdomyolysis. (2) Positive Lyme disease serology: Uncertain if this is reflective of past Lyme illness or if he has early disseminated Lyme. Favor former. He does not have symptoms or signs of early disseminated Lyme - no carditis, no arthritis, no PRIMARY TEACHER symptoms, etc. Await western blot. He will be on doxy 100mg BID regardless of outcome of Western Blot. (3) Thrombocytopenia: Highly suggestive of either tick-borne illness (anaplasmosis in particular) vs viral vs other. repeat CBC this afternoon suggests that the platelets are leveling off - good sign of course. If the platelets are due to anaplasmosis or other tick illness the platelets should continue to improve over the next 5-7 days. If viral the platelets could be low for several more days. CMV/EBV/parvo titers are pending. No indication for platelet transfusion at this time. No bleeding complications. (4) Anemia: Likely due to frequent blood draws since admission, some element of dilution (copious IV fluids since admission), and potentially some bone marrow supression. H/H have leveled off this afternoon. Again - although LDH is mildly high, retic count is not elevated and total bili is normal arguing against hemolysis. This would not support dx of babesiosis. (5) Hypothyroidism: TSH 2.8 in 08/2022 cont synthroid (6) DVT prophylaxis: due to severe thrombocytopenia chemical means are contraindicated further, he is ambulating the halls frequently Total Time Total Time Spent Total Time Spent (In Minutes): 50 Discharge Plan Discharge Items Patient Disposition: Home - Self-Care Reason For Visit: FEVER Discharge Diagnosis: fever Condition on Discharge: Fair Activity: Resume your previous activity Non-emergency contact: Primary Care Provider Call non-emergency contact if: you have any medication questions Follow-up/Referrals: Hortencia Villa MD [Primary Care Provider] - 05/11/23 11:00 am Diet: Regular Addtl Attending Provider Instructions: Recommend to continue your doxycycline at home. Limit sun light exposure, wear clothing to prevent your skin exposure to the sun, sun block. recommend to keep your appointment with your PCP. Pending Studies at Discharge: No Stand-Alone Forms: [facility], Smoking Cessation Medications and DC Order Prescriptions: Continued levothyroxine 88 mcg tablet 88 mcg PO QAM Qty: 90 3RF doxycycline hyclate 100 mg tablet 100 mg PO BID 7 Days Qty: 14 0RF acetaminophen [Tylenol Extra Strength] 500 mg Tablet 1,000 mg PO Q6H PRN (Reason: Fever) Discharge Orders: Discharge Order (Routine); Ordered 05/03/23 Ordered By: Jhony Helton Admission Data Admit Date/Time: 04/30/23 21:32 Attending Provider: Jhony Helton Admit Provider: Dacia Crawford Primary Care Provider: Hortencia Villa V. Other Providers: Elvis Guillaume Coding Level of Care Code 17616 INP/OBS DISCH >30 MIN Diagnoses Febrile illness, acute R50.9 Positive Lyme disease serology R76.8 Thrombocytopenia D69.6 Anemia D64.9 Hypothyroidism E03.9 DVT prophylaxis Z29.9
[2023-05-06 01:47] LABS: Babesia microti DNA Detected (Not Detected)
[2023-05-07 07:53] LABS: EBV Virus Capsid Ag IgG Ab >750.00 U/mL; Epstein Barr Virus Early Ag Ab <9.00 U/mL; Parvovirus IgG 5.2 (<0.9); Parvovirus IgM 0.3 (<0.9)
== END 2023-05-03 14:36 | disposition home or self-care (01) | DRG 868 ==
LOC: ED 17:18 → 2W 21:32 → SUATTDRO 21:32 → 2W 23:28